=== PATIENT | male | born 1945 | race Caucasian/White ===

== ENCOUNTER 2017-08-26 11:21 | Observation (INO) | payer OTHER ==
[~2017-08-26] VITALS: Ht 172.7 cm; Wt 82.5 kg
[2017-08-26 11:51] LABS: BASOPHIL (%) 0.4 % (0-1); EOSINOPHIL (%) 1.3 % (0-5); EOSINOPHIL COUNT 0.1 K/uL (0-0.3); HEMATOCRIT 42.6 % (38.0-50.0); HEMOGLOBIN 14.4 G/DL (12.5-16.6); IMMATURE GRANULOCYTE (%) 0.4 % (0.0-0.7); LYMPHOCYTE (%) 14.2 % (15-42); LYMPHOCYTE COUNT 1.2 K/uL (1.0-2.8); MCH 32.7 PG (29.0-34.0); MCHC 33.8 G/DL (30.0-36.0); MCV 96.6 FL (86-99); MONOCYTE (%) 8.7 % (3-12); MONOCYTE COUNT 0.7 K/uL (0-0.8); NEUTROPHIL COUNT 6.4 K/uL (1.8-6.4); PLATELET COUNT 117 K/uL (156-360); RBC DIS.WIDTH-CV 13.2 % (11.8-14.6); RBC DIS.WIDTH-SD 47.1 % (39-53); RED BLOOD COUNT 4.41 M/uL (4.00-5.50); WHITE BLOOD COUNT 8.5 K/uL (4.1-10.2)
[2017-08-26 12:31] LABS: TROP-I INTERPRETATION NEGATIVE; TROPONIN-I 0.03 ng/mL (0.0-0.30)
[2017-08-26 12:32] LABS: CHLORIDE 108 MEQ/L (99-109); CREATININE 1.2 MG/DL (0.6-1.3); GFR ESTIMATE (CALCULATED) > 59 mL/min/ (58.99-99999); GLUCOSE 110 mg/dL (70-99); POTASSIUM 4.4 MEQ/L (3.7-5.4); SODIUM 140 MEQ/L (136-147); UREA NITROGEN (BUN) 17 mg/dL (9-23)
[2017-08-26] MEDS ORDERED: MEVACOR20 MG PO (14:10)
[2017-08-26] MEDS ORDERED: CENTRUM SILVER1 EAC5 PO (14:10)
[2017-08-26] MEDS ORDERED: CORGARD20 MG PO (14:10)
[2017-08-26] MEDS ORDERED: ACETA-GESIC 321 EACH PO (14:15)
[2017-08-26 15:13] VITALS: BP 153/70
[2017-08-26 18:45] LABS: TROP-I INTERPRETATION NEGATIVE; TROPONIN-I < 0.01 ng/mL (0.0-0.30)
[2017-08-26 20:25] VITALS: BP 134/68
[2017-08-26 23:59] VITALS: BP 122/62
[2017-08-27 00:41] LABS: TROP-I INTERPRETATION NEGATIVE; TROPONIN-I 0.02 ng/mL (0.0-0.30)
[2017-08-27 04:10] VITALS: BP 103/58
[2017-08-27 05:58] LABS: HDL CHOLESTEROL 43 MG/DL (Desirable>=40); LDL CHOLESTEROL 57 mg/dL (Desirable<100); NON-HDL CHOLESTEROL 66 mg/dL (Desirable<160); TOTAL CHOLESTEROL 109 mg/dL (Desirable<200); TRIGLYCERIDES 47 MG/DL (Normal: <150)
[2017-08-27 08:50] VITALS: BP 129/64
[2017-08-27] MEDS ORDERED: PROVENTIL HFA6.7 GM IH (10:16)
== END 2017-08-27 12:30 | disposition home or self-care (01) ==
LOC: EME 11:21 → EDOF 13:29 → 4SOUTH 13:29 → ENRESERV 13:30 → 4SOUTH 14:56
PROVIDERS: Emergency Medicine; Hospitalist
DX: R07.9 Chest pain, unspecified (principal); J44.9 Chronic obstructive pulmonary disease, unspecified; I10 Essential (primary) hypertension; E78.5 Hyperlipidemia, unspecified; M25.512 Pain in left shoulder; F17.200 Nicotine dependence, unspecified, uncomplicated
CPT/HCPCS: 71045; 80048; 80061; 84484; 85025; 93005; 99202; 99281; 99284; G0378; J1644; J3010